=== PATIENT | female | born 1935 ===

== ENCOUNTER 2018-05-18 08:30 | Outpatient (CLI) | payer MEDICARE, OTHER | END 2018-05-18 08:31 | disposition home or self-care (01) | LOC: C.LAB 08:30 | DX: N39.0 Urinary tract infection, site not specified (principal); E78.9 Disorder of lipoprotein metabolism, unspecified; E11.9 Type 2 diabetes mellitus without complications ==

== ENCOUNTER 2018-05-30 10:47 | Outpatient (CLI) | payer MEDICARE, OTHER | END 2018-05-30 10:48 | disposition home or self-care (01) | LOC: C.EKG 10:47 ==

== ENCOUNTER 2018-06-06 07:58 | Outpatient (CLI) | payer MEDICARE, OTHER | END 2018-06-06 07:59 | disposition home or self-care (01) | LOC: C.CARD 07:58 ==